=== PATIENT | female | born 1995 | race Caucasian/White ===

== ENCOUNTER 2018-01-14 18:29 | Emergency (ER) | payer BC ==
[2018-01-14] MEDS ORDERED: Triamcinolone Acetonide* 40 MG/ML 1 ML VIAL IM ONE (19:51)
[2018-01-14] MEDS ORDERED: predniSONE TAB* 20 MG PO ONE (19:51)
--- NOTE | 2018-01-14 19:51 | UC ---
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 today developed very pruritic rash on face/neck/arms spreading rapidly - History of Current Complaint Chief Complaint: UCRash Time Seen by Provider: 01/14/18 19:30 Stated Complaint: RASH Hx Last Menstrual Period: 12/20/17 Onset/Duration: Gradual Onset, Lasting Hours Timing: Constant Onset Severity: Mild Current Severity: Moderate Pain Intensity: 0 Pain Scale Used: 0-10 Numeric Location: Diffuse - see HPI summary Character: Pruritus, Redness, Raised Aggravating Factor(s): Nothing Alleviating Factor(s): Nothing Associated Signs & Symptoms: Positive: Rash - Allergy/Home Medications Allergies/Adverse Reactions: Allergies Allergy/AdvReac Type Severity Reaction Status Date / Time azithromycin Allergy Unknown Itching Verified 01/14/18 19:09 Home Medications: Home Medications Norgestimate-Ethinyl Estradiol [Tri-Sprintec Tablet] 1 each PO DAILY 01/14/18 [ History Confirmed 01/14/18] Review of Systems Constitutional: Negative Skin: Rash Eyes: Negative ENT: Negative Respiratory: Negative Cardiovascular: Negative Gastrointestinal: Negative Genitourinary: Negative Motor: Negative Neurovascular: Negative Musculoskeletal: Negative Neurological: Negative Psychological: Negative Is Patient Immunocompromised?: No All Other Systems Reviewed And Are Negative: Yes PMH/Surg Hx/FS Hx/Imm Hx Previously Healthy: Yes - Surgical History Surgical History: Yes Surgery Procedure, Year, and Place: WISDOM TEETH EXTRACTIONS - Family History Known Family History: Positive: Hypertension - Social History Alcohol Use: Occasionally Substance Use Type: None Smoking Status (MU): Never Smoked Tobacco Physical Exam Triage Information Reviewed: Yes Appearance: Well-Appearing, No Pain Distress, Well-Nourished Vital Signs: Initial Vital Signs Temp 98 F 01/14/18 19:04 Pulse 80 01/14/18 19:04 Resp 18 01/14/18 19:04 BP 110/73 01/14/18 19:04 Pulse Ox 100 01/14/18 19:04 Vital Signs Reviewed: Yes Eyes: Positive: Conjunctiva Clear ENT: Positive: Hearing grossly normal, Uvula midline. Negative: Nasal congestion, Nasal drainage, Tonsillar swelling, Tonsillar exudate, Trismus, Muffled voice Neck: Positive: Supple, Nontender Respiratory: Positive: Lungs clear, Normal breath sounds, No respiratory distress, No accessory muscle use Cardiovascular: Positive: RRR, No Murmur Musculoskeletal: Positive: ROM Intact, No Edema Neurological: Positive: Alert Skin Exam: Other - rash c/w contact derm, some oozing serum and some collascesing in linear arrays Course/Dx - Diagnoses Provider Diagnoses: contact dermatitis Discharge - Sign-Out/Discharge Documenting (check all that apply): Discharge/Admit/Transfer - Discharge Plan Condition: Stable Disposition: HOME Prescriptions: Fexofenadine (NF) [Misty (NF)] 60 mg PO DAILY #14 tab Patient Education Materials: Contact Dermatitis (ED) Forms: *Work Release Referrals: No Primary Care Phys,NOPCP [Primary Care Provider] - Additional Instructions: cool compresses on weeping areas (Epsom salts) benadryl 25 mg 2 pills up to 4x day as needed for itching when you are working you can take misty in AM (non sedating antihistamine) and benadryl (50 mg) at bedtime shot should help rash and resolve it but don't expect dramatic results right away - Billing Disposition and Condition Condition: STABLE Disposition: Home
== END 2018-01-14 20:18 | disposition home or self-care (01) ==
LOC: UCCORT 18:29
DX: L25.9 Unspecified contact dermatitis, unspecified cause (principal)
CPT/HCPCS: 96372; 99202; G0463; J3301; J7512